=== PATIENT | female | born 1945 | race Caucasian/White ===

== ENCOUNTER 2018-08-23 08:30 | Outpatient (RCR) | payer OTHER | END 2018-08-23 09:00 | LOC: PT 08:30 | DX: M54.2 Cervicalgia (principal) ==

== ENCOUNTER → 2020-04-03 | Outpatient (CLI) | payer MEDICARE, OTHER | LOC: RAD 16:09 | DX: M17.12 Unilateral primary osteoarthritis, left knee (principal); M41.9 Scoliosis, unspecified; M51.36 Other intervertebral disc degeneration, lumbar region; M25.561 Pain in right knee ==

== ENCOUNTER 2020-05-08 09:30 | Outpatient (RCR) | payer MEDICARE, OTHER | END 2020-05-21 | disposition home or self-care (01) | LOC: PT | DX: M51.16 Intervertebral disc disorders with radiculopathy, lumbar region (principal); M47.817 Spondylosis without myelopathy or radiculopathy, lumbosacral region; M48.061 Spinal stenosis, lumbar region without neurogenic claudication ==

== ENCOUNTER 2020-05-23 12:57 | Outpatient (RCR) | payer MEDICARE, OTHER | END 2020-07-13 16:30 | disposition home or self-care (01) | LOC: PT 12:57 | DX: M54.5 Low back pain (principal) ==

== ENCOUNTER 2021-04-25 21:20 | Emergency (ER) | payer MEDICARE, OTHER ==
[~2021-04-25] VITALS: Ht 162.6 cm; Wt 66.4 kg
[2021-04-25 22:20] LABS: BASO # 0.04 K/mm3 (0.02-0.10); EOS # 0.11 K/mm3 (0.04-0.40); EOS % 1.9 % (1.0-5.0); HEMATOCRIT 40.7 % (37.0-47.0); HEMOGLOBIN 13.1 g/dL (12.5-16.0); LYMPH# 2.21 K/mm3 (1.50-4.00); MEAN CELL VOLUME 91 fl (78-100); MEAN CORPUSCULAR HEMOGLOBIN 29 pg (27-31); MEAN CORPUSCULAR HGB CONC 32 g/dL (33-37); MEAN PLATELET VOLUME 8.8 fl (7.4-10.4); MONO # 0.48 K/mm3 (0.20-0.80); NEU # 2.82 K/mm3 (1.40-6.50); PLATELET COUNT 335 K/mm3 (130-400); RED BLOOD COUNT 4.49 M/mm3 (4.10-5.30); RED CELL DISTRIBUTION WIDTH 12.8 % (11.5-14.5); WHITE BLOOD COUNT 5.7 K/mm3 (4.8-10.8)
[2021-04-25 22:37] LABS: TOTAL PROTEIN 6.7 g/dL (6.2-8.1)
[2021-04-25 22:39] LABS: TOTAL BILIRUBIN 0.3 mg/dL (0.2-1.2)
[2021-04-25 23:04] LABS: PH-URINE 7.5 (5.0 - 8.0); URINE APPEARANCE CLEAR; URINE BILIRUBIN NEGATIVE (NEGATIVE); URINE BLOOD TRACE (NEGATIVE); URINE COLOR YELLOW; URINE GLUCOSE NEGATIVE (NEGATIVE); URINE KETONE NEGATIVE (NEGATIVE); URINE LEUKOCYTE ESTERASE TRACE (NEGATIVE); URINE NITRATE NEGATIVE (NEGATIVE); URINE PROTEIN(semi-quant) NEGATIVE (NEGATIVE); URINE UROBILINOGEN NORMAL (NORMAL); URINE WBC 0-1 /hpf (0-3)
[2021-04-25] MEDS ORDERED: MACROBID 100 M100 MG PO (23:39)
[2021-04-25] MEDS ORDERED: LOW DOSE ASPIRI81 M1 PO (23:39)
[2021-04-25 23:50] VITALS: BP 123/77
== END 2021-04-25 23:50 | disposition home or self-care (01) ==
LOC: ED 21:20
PROVIDERS: Nurse Practitioner
DX: N39.0 Urinary tract infection, site not specified (principal); G45.9 Transient cerebral ischemic attack, unspecified

== ENCOUNTER → 2023-01-28 | Outpatient (CLI) | payer MEDICARE, OTHER ==
[~2023-01-28] MED LIST: LOW DOSE ASPIRI81 M1 PO; MACROBID 100 M100 MG PO
== END ==
LOC: RAD 08:30
DX: M17.0 Bilateral primary osteoarthritis of knee (principal); S83.002A Unspecified subluxation of left patella, initial encounter; S83.001A Unspecified subluxation of right patella, initial encounter

== ENCOUNTER 2023-03-18 07:47 | Outpatient (RCR) | payer MEDICARE, OTHER | END 2023-04-16 | disposition home or self-care (01) | LOC: PT | DX: M25.562 Pain in left knee (principal); M25.561 Pain in right knee ==

== ENCOUNTER → 2024-02-24 | Outpatient (CLI) | payer MEDICARE, OTHER | LOC: RAD 09:57 | DX: M17.0 Bilateral primary osteoarthritis of knee (principal) ==

== ENCOUNTER → 2024-03-09 | Outpatient (CLI) | payer MEDICARE, OTHER | LOC: RAD 08:19 | DX: M25.511 Pain in right shoulder (principal) ==